=== PATIENT | male | born 2000 | race African-American/Black ===

== ENCOUNTER 2020-05-29 10:13 | Emergency (ER) | payer OTHER ==
[~2020-05-29] VITALS: Ht 182.9 cm; Wt 74.3 kg
[2020-05-29] MEDS ORDERED: DIPH,PERTUSS(ACELL),TET VAC/PF 0.5 ML SYRINGE. VAX IM ONE (12:00)
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
[2020-05-29] MEDS ORDERED: LIDOCAINE WITH 8.4% SOD BICARB 3 ML DISP.SYRIN. INJ ONE (12:30)
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
[2020-05-29 13:35] VITALS: BP 139/77
[2020-05-30] MEDS ORDERED: LEXAPRO20 MG PO (14:18)
[2020-05-30] MEDS ORDERED: ARIP10TA9 PO (14:18)
[2020-05-30] MEDS ORDERED: BENZ0.5T32 PO (14:18)
== END 2020-05-29 13:35 | disposition home or self-care (01) ==
LOC: ER 10:13
DX: S61.210A Laceration without foreign body of right index finger without damage to nail, initial encounter (principal); S61.214A Laceration without foreign body of right ring finger without damage to nail, initial encounter; F20.9 Schizophrenia, unspecified; F84.0 Autistic disorder; Y28.0XXA Contact with sharp glass, undetermined intent, initial encounter; Y93.89 Activity, other specified; Y92.89 Other specified places as the place of occurrence of the external cause; Y99.8 Other external cause status
CPT/HCPCS: 12001; 73130; 90471; 90715; 99283; J3490

== ENCOUNTER 2020-05-29 14:30 | Inpatient (IN) | payer OTHER ==
[~2020-05-29] VITALS: Ht 182.9 cm; Wt 73.1 kg
[2020-05-29 11:50] VITALS: BP 125/65
[2020-05-29 15:36] LABS: BILIRUBIN,URINE NEGATIVE (NEG); CLARITY,URINE CLEAR; COLOR,URINE YELLOW; NITRITE,URINE NEGATIVE (NEG); PROTEIN,URINE NEGATIVE (NEG-TRACE); UROBILINOGEN,URINE 0.2 mg/dL (0.2 mg/dL)
[2020-05-29 15:42] LABS: BARBITURATES NEG (NEG); BENZODIAZEPINES NEG (NEG); CANNABINOIDS NEG (NEG); COCAINE NEG (NEG); METHADONE NEG (NEG); OPIATES NEG (NEG); PHENCYCLIDINE NEG (NEG)
[2020-05-29 15:43] LABS: AMPHETAMINE/METHAMPHETAMINE NEG (NEG); BACTERIA,URINE 0 /HPF (0-FEW); RBC,URINE 0 /HPF (0-2); WBC,URINE 0 /HPF (0-4)
[2020-05-29] MEDS ORDERED: ONDANSETRON ODT 4 MG TAB.RAPDIS. PO ONE (16:00)
[2020-05-29 16:33] LABS: BASO % 0 % (0-3); EOS # 0.1 x10^3/uL (0.0-0.7); EOS % 3 % (0-3); HEMATOCRIT 46.7 % (39.0-53.0); HEMOGLOBIN 15.2 g/dL (13.0-17.5); LYMPH # 1.4 x10^3/uL (1.0-4.8); LYMPH % 25 % (24-48); MEAN CORPUSCULAR HEMOGLOBIN 28 pg (25-35); MEAN CORPUSCULAR HGB CONC 33 g/dL (31-37); MEAN CORPUSCULAR VOLUME 86 fL (79-100); MONO # 0.5 x10^3/uL (0.0-1.1); MONO % 9 % (0-9); NEUT # 3.5 x10^3/uL (1.8-7.7); NEUT % 63 % (31-73); PLATELET COUNT 176 x10^3/uL (140-400); RED BLOOD COUNT 5.44 x10^6/uL (4.30-5.70); RED CELL DISTRIBUTION WIDTH 13.2 % (11.5-14.5); WHITE BLOOD COUNT 5.6 x10^3/uL (4.0-11.0)
[2020-05-29 16:52] LABS: CREATININE 0.8 mg/dL (0.7-1.3); GFR 149.1
[2020-05-29 17:04] LABS: ACETAMIN < 2 mcg/ml (10-30); ETHANOL < 10 mg/dL (0-10); SALIC < 2.8 mg/dL (2.8-20.0)
[2020-05-29 17:06] LABS: ALBUMIN 3.6 g/dL (3.4-5.0); ALBUMIN/GLOBULIN RATIO 1.1 (1.0-1.7); TOTAL BILIRUBIN 0.6 mg/dL (0.2-1.0)
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
[2020-05-29] MEDS ORDERED: ONDANSETRON ODT 4 MG TAB.RAPDIS. PO PRN (19:15)
[2020-05-29] MEDS ORDERED: ACETAMINOPHEN 325 MG TABLET. PO PRN (19:15)
--- NOTE | 2020-05-29 19:19 | HP ---
ADMIT DATE: 05/29/2020 CHIEF COMPLAINT: Schizophrenia. HISTORY OF PRESENT ILLNESS: The patient is a pleasant middle-aged male who presents today to the ER with complaints of feeling he is going to . He does have schizophrenia. They called the psychiatric facility. He is going to be placed there, but they want a COVID test before he can go. We are admitting the patient for COVID testing and for observation. PAST MEDICAL HISTORY: Schizophrenia. ALLERGIES: None. FAMILY HISTORY: Diabetes. SOCIAL HISTORY: He does not drink, smoke or take drugs. He states he is on disability. MEDICATIONS: Reviewed, please refer to the MRAD. REVIEW OF SYSTEMS: GENERAL: No history of weight change, weakness or fevers. SKIN: No bruising, hair changes or rashes. EYES: No blurred, double or loss of vision. NOSE AND THROAT: No history of nosebleeds, hoarseness or sore throat. HEART: No history of palpitations, chest pain or shortness of breath on exertion. LUNGS: Denies cough, hemoptysis, wheezing or shortness of breath. GASTROINTESTINAL: Denies changes in appetite, nausea, vomiting, diarrhea or constipation. GENITOURINARY: No history of frequency, urgency, hesitancy or nocturia. NEUROLOGIC: Denies history of numbness, tingling, or tremor. He complains weakness. PSYCHIATRIC: He complains of depression and feeling like he is going to . ENDOCRINE: No history of heat or cold intolerance, polyuria or polydipsia. EXTREMITIES: Denies muscle weakness, joint pain, pain on walking or stiffness. PHYSICAL EXAMINATION: VITALS: Within normal limits and are stable. GENERAL: No apparent distress. Alert and oriented. HEENT: Normal cephalic atraumatic, external auditory canals are patent. EYES: Extraocular muscles are intact, pupils are equally round and reactive to light and accommodation. MUSCULOSKELETAL: Well developed, well nourished, good range of motion. ENDOCRINE: No thyromegaly was palpated. LYMPHATICS: No cervical chain or axillary nodes were noted. HEMATOPOIETIC: No bruising. NECK: Supple, no JVD, no thyromegaly was noted. LUNGS: Clear to auscultation in all lung truong without rhonchi or wheezing. HEART: RRR, S1, S2 present. Peripheral pulses intact, no obvious murmurs were noted. ABDOMEN: Soft, nontender. Positive bowel sounds no organomegaly, normal bowel sounds. EXTREMITIES: Without any cyanosis, clubbing, or edema. Pedal pulses intact, Homans sign is negative. NEUROLOGIC: Normal speech, normal tone. A & O x 3, moves all extremities, no obvious focal deficits. PSYCHIATRIC: Normal affect, normal mood. Stable. SKIN: No ulcerations or rashes, good skin turgor, no jaundice. VASCULAR: Good capillary refill, neurovascular bundle appears to be intact. LABORATORY DATA: Electrolytes are normal. CBC is normal. Drug screen is negative. Urinalysis negative. COVID testing is pending. ASSESSMENT AND PLAN: Schizophrenia with hallucinations and feeling that he has impending . The patient is coming in for observation. We are checking him for COVID-19 and then the plan is to get him to inpatient psych tomorrow. Resume his home medications, DVT prophylaxis. Full code. CHEYENNE DAVIS DO DR: REENA/silas JOB#: [id number] / [id number]
--- NOTE | 2020-05-29 23:50 | NUR ---
ADMIT NOTE: RECEIVED PT FROM ED VIA WHEELCHAIR, UPON ARRIVAL TO ROOM 442, NURSE TECH AT BEDSIDE FOR 1:1. PT ALERT ORIENTED X4 ,CALM COOPERATIVE, DATA BASE AND ASSESSMENT COMPLETED PT REQUESTING FOOD. BELONGING INVENTORIED AND PLACED IN MEDICATION ROOM. FOUND 2 PILLS,SENT TO PHARMACY FOR IDENTIFICATION. PILLS ARE BENZTROPINE 0.5 MG AND LEXAPRO 20 MG. MEDICATION KEPT IN PHARMACY. DISCUSSED PLAN OF CARE, PT VERBALIZED UNDERSTANDING.
[2020-05-30 03:03] VITALS: BP 117/53
[2020-05-30 06:52] VITALS: BP 123/61
--- NOTE | 2020-05-30 10:35 | PDOC ---
[employer] PROGRESS NOTE Date of Service DOS: DATE: 05/30/20 TIME: 10:31 Chief Complaint Chief Complaint Schizophrenia, PUI History of Present Illness History of Present Illness 05/30/2020 Patient seen and examined in room Was alert and cooperative, had no questions or concerns Discussed d/c plans and explained we were waiting for the COVID results DWRN Chart reviewed Vitals/I&O Vitals/I&O: Vital Signs Date Time Temp Pulse Resp B/P (MAP) Pulse Ox O2 Delivery O2 Flow Rate FiO2 05/30/20 06:52 97.0 79 18 123/61 (81) 98 Room Air 97.0 I & O 05/29/20 05/29/20 05/30/20 15:00 23:00 07:00 Intake Total 520 ml Balance 520 ml Physical Exam General: Alert, Oriented X3, Cooperative, No acute distress Heart: Regular rate Lungs: Clear Extremities: No edema Labs Labs: Laboratory Tests Test 05/29/20 15:18 05/29/20 16:11 Urine Collection Type Unknown Urine Color Yellow Urine Clarity Clear Urine pH 6.0 (<5.0-8.0) Urine Specific [place] 1.025 (1.000-1.030) Urine Protein Negative mg/dL (NEG-TRACE) Urine Glucose (UA) Negative mg/dL (NEG) Urine Ketones (Stick) Negative mg/dL (NEG) Urine Blood Negative (NEG) Urine Nitrite Negative (NEG) Urine Bilirubin Negative (NEG) Urine Urobilinogen Dipstick 0.2 mg/dL (0.2 mg/dL) Urine Leukocyte Esterase Negative (NEG) Urine RBC 0 /HPF (0-2) Urine WBC 0 /HPF (0-4) Urine Squamous Epithelial Cells Occ /LPF Urine Bacteria 0 /HPF (0-FEW) Urine Mucus Marked /LPF Urine Opiates Screen Neg (NEG) Urine Methadone Screen Neg (NEG) Urine Barbiturates Neg (NEG) Urine Phencyclidine Screen Neg (NEG) Urine Amphetamine/Methamphetamine Neg (NEG) Urine Benzodiazepines Screen Neg (NEG) Urine Cocaine Screen Neg (NEG) Urine Cannabinoids Screen Neg (NEG) Urine Ethyl Alcohol Neg (NEG) White Blood Count 5.6 x10^3/uL (4.0-11.0) Red Blood Count 5.44 x10^6/uL (4.30-5.70) Hemoglobin 15.2 g/dL (13.0-17.5) Hematocrit 46.7 % (39.0-53.0) Mean Corpuscular Volume 86 fL (79-100) Mean Corpuscular Hemoglobin 28 pg (25-35) Mean Corpuscular Hemoglobin Concent 33 g/dL (31-37) Red Cell Distribution Width 13.2 % (11.5-14.5) Platelet Count 176 x10^3/uL (140-400) Neutrophils (%) (Auto) 63 % (31-73) Lymphocytes (%) (Auto) 25 % (24-48) Monocytes (%) (Auto) 9 % (0-9) Eosinophils (%) (Auto) 3 % (0-3) Basophils (%) (Auto) 0 % (0-3) Neutrophils # (Auto) 3.5 x10^3/uL (1.8-7.7) Lymphocytes # (Auto) 1.4 x10^3/uL (1.0-4.8) Monocytes # (Auto) 0.5 x10^3/uL (0.0-1.1) Eosinophils # (Auto) 0.1 x10^3/uL (0.0-0.7) Basophils # (Auto) 0.0 x10^3/uL (0.0-0.2) Sodium Level 143 mmol/L (136-145) Potassium Level 4.0 mmol/L (3.5-5.1) Chloride Level 106 mmol/L (98-107) Carbon Dioxide Level 27 mmol/L (21-32) Anion Gap 10 (6-14) Blood Urea Nitrogen 13 mg/dL (8-26) Creatinine 0.8 mg/dL (0.7-1.3) Estimated GFR (Cockcroft-Gault) 149.1 BUN/Creatinine Ratio 16 (6-20) Glucose Level 86 mg/dL (70-99) Calcium Level 9.0 mg/dL (8.5-10.1) Total Bilirubin 0.6 mg/dL (0.2-1.0) Aspartate Amino Transf (AST/SGOT) 22 U/L (15-37) Alanine Aminotransferase (ALT/SGPT) 26 U/L (16-63) Alkaline Phosphatase 86 U/L (46-116) Total Protein 7.0 g/dL (6.4-8.2) Albumin 3.6 g/dL (3.4-5.0) Albumin/Globulin Ratio 1.1 (1.0-1.7) Salicylates Level < 2.8 mg/dL (2.8-20.0) Salicylate Last Dose Date Unk Salicylate Last Dose Time Unk Acetaminophen Level < 2 mcg/ml (10-30) Acetaminophen Last Dose Date Unk Acetaminophen Last Dose Time Unk Ethyl Alcohol Level < 10 mg/dL (0-10) SARS-CoV-2 Antigen (Rapid) Negative (NEGATIVE) Review of Systems Review of Systems: Patient denied fever or nausea Assessment and Plan Assessmemt and Plan Problems Medical Problems: (1) Encounter for psychological evaluation Status: Acute (2) Schizophrenia Status: Acute Plan Awaiting COVID result so that we can d/c to inpatient psych Observation Cont home meds DVT prophylaxis Full code Comment Review of Relevant I have reviewed the following items [id number] (where applicable) has been applied. Medications: Current Medications Medications (Trade) Dose Ordered Sig/Kay Route PRN Reason Start Time Stop Time Status Last Admin Dose Admin Ondansetron HCl (Zofran Odt) 4 mg 1X ONCE PO 05/29/20 16:00 05/29/20 16:01 DC 05/29/20 16:07 Acetaminophen (Tylenol) 650 mg PRN Q4HRS PRN PO FEVER > 100.3'F 05/29/20 19:15 05/30/20 19:14 05/30/20 07:10 Justifications for Admission Other Justification CHEYENNE DAVIS III DO May 30, 2020 10:35
[2020-05-30 10:45] VITALS: BP 113/62
[2020-05-30] MEDS ORDERED: ARIP10TA9 PO (14:18)
[2020-05-30] MEDS ORDERED: LEXAPRO20 MG PO (14:18)
[2020-05-30] MEDS ORDERED: BENZ0.5T32 PO (14:18)
[2020-05-30 15:00] VITALS: BP 124/64
[2020-05-30] MEDS ORDERED: CITALOPRAM 20 MG TABLET. PO SCH (15:00)
[2020-05-30] MEDS ORDERED: ARIPiprazole 5 MG TABLET PO SCH (15:00)
[2020-05-30 19:00] VITALS: BP 113/63
[2020-05-30] MEDS ORDERED: BENZTROPINE MESYLATE 1 MG TABLET. PO SCH ×2 (21:00)
--- NOTE | 2020-05-30 21:15 | NUR ---
PT RESTING IN BED WITH SITTER AT BEDSIDE PT CALM COOPERATIVE. REPORT CALLED TO SUDHIR TORIBIO RN. PT STAB;E TO TRANSFER. [facility] FIRE DEPART TRANSPORTED PT AT 2205. BELONGINGS WITH PT.
[2020-05-31] MEDS ORDERED: CITALOPRAM 20 MG TABLET. PO SCH (21:00)
[2020-05-31] MEDS ORDERED: ARIPiprazole 5 MG TABLET PO SCH (21:00)
== END 2020-05-30 22:05 | DRG 951 ==
LOC: ER 14:30 → ED HOLD 17:44 → 4 NORTH 23:54
PROVIDERS: ADMIT Internal Medicine; ATTEND Internal Medicine
DX: Z20.822 Contact with and (suspected) exposure to COVID-19 (principal); F84.0 Autistic disorder; F20.9 Schizophrenia, unspecified; F32.9 Major depressive disorder, single episode, unspecified; Z91.14 Patient's other noncompliance with medication regimen; Z83.3 Family history of diabetes mellitus; Z13.39 Encounter for screening examination for other mental health and behavioral disorders
CPT/HCPCS: 36415; 80053; 80307; 80329; 81001; 85025; 87426; G0480; U0003; 99285-25; G0378

== ENCOUNTER 2020-06-26 20:31 | Emergency (ER) | payer OTHER ==
[~2020-06-26] VITALS: Ht 182.9 cm; Wt 75.0 kg
[~2020-06-26 20:31] MED LIST: ARIP10TA9 PO; BENZ0.5T32 PO; LEXAPRO20 MG PO
--- NOTE | 2020-06-26 22:01 | ED.ADGEN ---
Past Medical History Past Medical History: Depression, Schizophrenia, Other Additional Past Medical Histor: Autism, Seasonal Allergies Past Surgical History: Tonsillectomy, Other Additional Past Surgical Histo: circumcision, dental surgery Smoking Status: Never Smoker Alcohol Use: None Drug Use: None General Adult EDM: Chief Complaint: PSYCH EVALUATION HPI: HPI: Patient is a 20-year-old male with a past medical history of psychosis who presents to the emergency room after being found on the street yelling at things that were not there. Patient states that he does not want to talk about what is going on. He denies hearing voices or seeing visions. He does state that he believes that there are aliens among us. He denies any suicidal ideations. He denies any homicidal ideations. He states that there are no voices telling him to hurt himself or hurt other people. 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 Patient does not have any complaints. Review of Systems: Review of Systems: Complete ROS is negative unless otherwise documented in HPI Allergies: Allergies: Allergies Coded Allergies Type Severity Reaction Last Updated Verified No Known Drug Allergies 05/29/20 No Physical Exam: PE: General: Awake, alert, NAD. Well Nourished, well hydrated. Cooperative HEENT: Atraumatic, EOMI, PERRL, airway patent, moist oral mucosa Neck: Supple, trachea midline Respiratory: CTA bilaterally, normal effort, no wheezing/crackles CV: RRR, no murmur, cap refill <2 GI: Soft, nondistended, nontender, no masses MSK: No obvious deformities Skin: Warm, dry, intact Neuro: A&O x3, speech NL, sensory and motor grossly intact, no focal deficits Psych: Flat affect, calm, not suicidal or homicidal Current Patient Data: Vital Signs: Vital Signs Date Time Temp Pulse Resp B/P (MAP) Pulse Ox O2 Delivery O2 Flow Rate FiO2 06/26/20 22:06 68 20 114/71 (85) 98 Room Air 06/26/20 20:35 98.2 98.2 EKG: EKG: [] Heart Score: C/O Chest Pain: N/A Risk Factors: Risk Factors: DM, Current or recent (<one month) smoker, HTN, HLP, family history of CAD, obesity. Risk Scores: Score 0 - 3: 2.5% MACE over next 6 weeks - Discharge Home Score 4 - 6: 20.3% MACE over next 6 weeks - Admit for Clinical Observation Score 7 - 10: 72.7% MACE over next 6 weeks - Early Invasive Strategies Radiology/Procedures: Radiology/Procedures: [] Course & Med Decision Making: Course & Med Decision Making Pertinent Labs and Imaging studies reviewed. (See chart for details) Patient is a 20-year-old male who presents to the emergency room after being found on the street yelling at possible hallucinations. Patient does not appear to be hallucinating here in the emergency room. He denies any homicidal or suicidal ideations. He denies hearing any command voices. He does state that he is supposed to be on medication but is not taking it. 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 He has a safe place to live. At this time patient does not want any help. He does not appear to be a harm to himself or others. The PAT team was consulted and a safety plan was done. Patient's test results and vitals while in the ED were fully reviewed and discussed with the patient. Patient is stable and at this time does not need admission to the hospital. We have discussed strict return precautions and the importance of following up with their Primary Care Physician. Patient stated understanding and was given an opportunity to ask any questions. Patient is in agreement with plan. Daryl Disclaimer: Daryl Disclaimer: This electronic medical record was generated, in whole or in part, using a voice recognition dictation system. Departure Departure Impression: Primary Impression: Encounter for psychological evaluation Disposition: 01 DC HOME SELF CARE/HOMELESS Condition: STABLE Referrals: NO PCP (PCP) Patient Instructions: Psychosis AJIT VELAZQUEZ MD Jun 26, 2020 22:00
[2020-06-26 22:06] VITALS: BP 114/71
== END 2020-06-26 22:20 | disposition home or self-care (01) ==
LOC: ER 20:31
DX: F28 Other psychotic disorder not due to a substance or known physiological condition (principal); F20.9 Schizophrenia, unspecified; F32.9 Major depressive disorder, single episode, unspecified
CPT/HCPCS: 99283